=== PATIENT | male | born 1955 | race Two or more races ===

== ENCOUNTER 2023-05-24 05:36 | Day surgery (SDC) | payer OTHER ==
[~2023-05-24] VITALS: Ht 160 cm; Wt 71.7 kg
== END 2023-05-24 12:45 | disposition home or self-care (01) ==
LOC: CIR.AMB 05:36
PROVIDERS: ATTEND Orthopaedic Surgery
DX: M75.21 Bicipital tendinitis, right shoulder (principal); S46.111A Strain of muscle, fascia and tendon of long head of biceps, right arm, initial encounter; Z20.822 Contact with and (suspected) exposure to COVID-19
CPT/HCPCS: 24340; L8699